=== PATIENT | female | born 1990 | race Caucasian/White ===

== ENCOUNTER 2017-11-26 08:55 | Inpatient (IN) | payer OTHER ==
[2017-11-26] VITALS (17 sets, daily range): BP systolic 97–114; BP diastolic 55–74; PULSE 77–110; TEMP 97.5–99
[~2017-11-26] VITALS: Ht 175.3 cm; Wt 96.4 kg
[~2017-11-26 08:55] MED LIST: IBU800 M1 PO; IRON325 MG PO; NEXIUM 40MG40 MG PO; PERCOCET 325 MG1 TA2 PO; PHENERGAN 25 TA25 MG PO; PRENATAL1 TA7 PO; TUMS500 MG
[2017-11-26 10:59] LABS: MEAN CELL VOLUME 73 fl (80.0-100.0); MEAN CORPUSCULAR HGB CONC 31 g/dl (33.0-37.0); MEAN PLATELET VOLUME 8.6 fl (7.4-10.4); PLATELET COUNT 227 K/mm3 (130-400); RED BLOOD COUNT 4.16 M/mm3 (4.10-5.30); REDCELL DISTRIBUTION WIDTH-CV 17.9 % (11.5-14.5)
[2017-11-26 11:01] LABS: HEMATOCRIT 30.3 % (37.0-47.0); HEMOGLOBIN 9.3 g/dl (12.5-16.0); MEAN CORPUSCULAR HEMOGLOBIN 22 pg (27.0-31.0)
[2017-11-26 11:22] LABS: BAND 19 % (0-10); BASOPHIL 1 % (0-2); LYMPHOCYTE 17 % (20.0-51.0); NEUTROPHILS 61 % (42.0-75.2); PLATELET ESTIMATE NORMAL (NORMAL)
[2017-11-26 11:23] LABS: HYPOCHROMIA 3+; MICROCYTOSIS 1+
[2017-11-27 01:00] VITALS: BP 104/65; PULSE 75; TEMP 97.4
[2017-11-27 07:15] VITALS: BP 109/65; PULSE 90; TEMP 97.8
[2017-11-27 08:07] LABS: MEAN CELL VOLUME 74 fl (80.0-100.0); MEAN CORPUSCULAR HGB CONC 30 g/dl (33.0-37.0); MEAN PLATELET VOLUME 8.9 fl (7.4-10.4); PLATELET COUNT 199 K/mm3 (130-400); RED BLOOD COUNT 4.17 M/mm3 (4.10-5.30)
[2017-11-27] MEDS ORDERED: PERCOCET 325 MG1 TA2 PO (08:09)
[2017-11-27] MEDS ORDERED: IBU800 M1 PO (08:09)
[2017-11-27 08:12] LABS: HEMATOCRIT 30.9 % (37.0-47.0); HEMOGLOBIN 9.2 g/dl (12.5-16.0); MEAN CORPUSCULAR HEMOGLOBIN 22 pg (27.0-31.0)
[2017-11-27 08:34] LABS: BAND 16 % (0-10); LYMPHOCYTE 25 % (20.0-51.0); NEUTROPHILS 53 % (42.0-75.2)
[2017-11-27 08:35] LABS: HYPOCHROMIA 3+; MICROCYTOSIS 1+; PLATELET ESTIMATE NORMAL (NORMAL)
[2017-11-27 08:36] LABS: ANISOCYTOSIS 1+
[2017-11-27 08:37] LABS: POIKILOCYTOSIS 1+; TEAR DROP CELLS 1+
[2017-11-27 16:00] VITALS: BP 122/72; PULSE 79; TEMP 98.9
[2017-11-27 21:30] VITALS: BP 106/66; PULSE 79; TEMP 97.4
[2017-11-28 08:26] VITALS: BP 115/60; PULSE 80; TEMP 97.8
== END 2017-11-28 11:11 | disposition home or self-care (01) | DRG 766 ==
LOC: LDR 08:55 → OB 09:59
PROVIDERS: Student in an Organized Health Care Education/Training Program
PROC: 10D00Z1 Extraction of Products of Conception, Low, Open Approach (ICD-10-PCS; principal; 2017-11-26)
DX: O34.211 Maternal care for low transverse scar from previous cesarean delivery (principal); Z3A.39 39 weeks gestation of pregnancy; Z37.0 Single live birth
CPT/HCPCS: J0690; J1885; J2270; J2370; J2405; J2590; J7120